=== PATIENT | female | born 1955 | race African-American/Black ===

== ENCOUNTER 2017-10-06 09:37 | Day surgery (SDC) | payer MEDICARE, OTHER ==
[~2017-10-06] VITALS: Ht 170.2 cm; Wt 68.0 kg
[2017-10-06] VITALS (7 sets, daily range): BP systolic 113–139; BP diastolic 74–91
[~2017-10-06 09:37] MED LIST: AMLODIPINE BESYL5 MG ORAL; ASPIRIN81 MG ORAL; ATORVASTATIN CA40 MG ORAL; BENAZEPRIL HCL10 MG ORAL; BISACODYL5 MG ORAL; CARVEDILOL12.5 MG ORAL; CATAPRES0.1 MG ORAL; CLARITIN10 M2 ORAL; FOLIC ACID1 MG ORAL; HYDRALAZINE HC100 MG ORAL; MULTIVITAMINS1 EAC8 ORAL; NAMENDA10 MG ORAL; OYSTER SHELL 51 EAC1 PO; PLAVIX75 MG ORAL; VITAMIN D400 INTLU ORAL; ZANTAC150 MG ORAL
[2017-10-06] MEDS ORDERED: Midazolam 2mg/2ml Inj ONE (10:26)
[2017-10-06] MEDS ORDERED: fentaNYL 100 mcg/2 mL IV ONE (10:26)
[2017-10-06] MEDS ORDERED: Lidocaine 1% MPF 10mg/ml 5ml ONE (10:27)
[2017-10-06 10:51] LABS: BASOPHILS % (AUTO) 1.2 % (0.0-2.0); EOSINOPHILS % (AUTO) 2.7 % (0.0-3.0); HEMATOCRIT 40.8 % (37.0-47.0); HEMOGLOBIN 13.7 G/DL (12.0-16.0); LYMPHOCYTES % (AUTO) 32.6 % (20.0-45.0); MEAN CORPUSCULAR VOLUME 91 FL (80-99); MONOCYTES % (AUTO) 8.5 % (1.0-10.0); NEUTROPHILS % (AUTO) 54.9 % (45.0-75.0); PLATELET COUNT 185 K/UL (150-450); RED BLOOD COUNT 4.46 M/UL (4.20-5.40); RED CELL DISTRIBUTION WIDTH 12.6 % (11.6-14.8); WHITE BLOOD COUNT 4.6 K/UL (4.8-10.8)
[2017-10-06 10:57] LABS: ANION GAP 7 mmol/L (5-15); BLOOD UREA NITROGEN 21 mg/dL (7-18); CALCIUM 9.1 MG/DL (8.5-10.1); CARBON DIOXIDE 29 MMOL/L (21-32); CHLORIDE 106 MMOL/L (98-107); CREATININE 1.4 MG/DL (0.55-1.30); POTASSIUM 3.9 MMOL/L (3.5-5.1); SODIUM 142 MMOL/L (136-145)
[2017-10-06] MEDS ORDERED: Lidocaine 2% 20mg/ml/Epi 0.005mg/ml 20ml vial ONE (11:46)
[2017-10-06] MEDS ORDERED: Clindamycin 2 ML ONE (11:46)
--- NOTE | 2017-10-06 11:48 | Pre-Procedure Note/Attestation ---
Pre-Procedure Note/Attestation Complete Prior to Procedure Planned Procedure: bilateral - nasal ob Indications for Procedure Pre-Operative Diagnosis: nasal obstruction severe septal deviation Attestation I attest that I discussed the nature of the procedure; its benefits; risks and complications; and alternatives (and the risks and benefits of such alternatives ), prior to the procedure, with the patient (or the patient's legal specialty sales representative). I attest that, if there was a reasonable possibility of needing a blood transfusion, the patient (or the patient's legal specialty sales representative) was given the [facility] standardized written summary, pursuant to the Andres David Blood Safety Act ([place] Health and Safety Code # 1645, as amended). I attest that I re-evaluated the patient just prior to the surgery and that there has been no change in the patient's H&P, except as documented below: Ochoa Villalobos MD Oct 06, 2017 11:48
--- NOTE | 2017-10-06 11:49 | Pre-Procedure Note/Attestation ---
Pre-Procedure Note/Attestation Complete Prior to Procedure Planned Procedure: bilateral Indications for Procedure Pre-Operative Diagnosis: nasal obstruction severe septal deviation Attestation I attest that I discussed the nature of the procedure; its benefits; risks and complications; and alternatives (and the risks and benefits of such alternatives ), prior to the procedure, with the patient (or the patient's legal motor vehicle field representative). I attest that, if there was a reasonable possibility of needing a blood transfusion, the patient (or the patient's legal motor vehicle field representative) was given the [facility] standardized written summary, pursuant to the Nadres David Blood Safety Act ([place] Health and Safety Code # 1645, as amended). I attest that I re-evaluated the patient just prior to the surgery and that there has been no change in the patient's H&P, except as documented below: Ochoa Villalobos MD Oct 06, 2017 11:49
[2017-10-06] MEDS ORDERED: Propofol 200mg/20ml IV ONE (12:00)
[2017-10-06] MEDS ORDERED: LR 1000ml ONE (12:00)
--- NOTE | 2017-10-06 12:32 | Anethesia Preoperative Eval ---
Anesthesia Pre-op PMH/ROS General Date of Evaluation: Oct 06, 2017 Time of Evaluation: 11:48 Anesthesiologist: Lo ASA Score: ASA 3 Mallampati Score Class I : Soft palate, uvula, fauces, pillars visible Class II: Soft palate, uvula, fauces visible Class III: Soft palate, base of uvula visible Class IV: Only hard plate visible Mallampati Classification: Class II Surgeon: Walt Diagnosis: Septal deviation Surgical Procedure: Septoplasty Anesthesia History: none Allergies: Coded Allergies: CIPROFLOXACIN (Verified Allergy, Unknown, 10/05/17) MILK CONTAINING PRODUCTS (Verified Allergy, Unknown, 10/05/17) ORANGE JUICE (Verified Allergy, Unknown, 10/05/17) PENICILLINS (Verified Allergy, Unknown, 10/05/17) PINEAPPLE (Verified Allergy, Unknown, 10/05/17) Uncoded Allergies: FLU SHOT (Allergy, Unknown, 10/05/17) SULFONAMIDES (Allergy, Unknown, 10/05/17) Medications: see eMAR Past Medical History Cardiovascular: Reports: HTN; Denies: CAD, SD, valve dz, arrhythmia, other Pulmonary: Denies: asthma, COPD, GHADA, other Gastrointestinal/Genitourinary: Reports: GERD; Denies: CRI, ESRD, other Neurologic/Psychiatric: Reports: dementia - mild; Denies: CVA, depression/anxiety, TIA, other Endocrine: Reports: DM - borderline; Denies: hypothyroidism, steroids, other HEENT: Denies: cataract (L), cataract (R), glaucoma, LAC COURTE OREILLES (L), LAC COURTE OREILLES (R), other Hematology/Immune: Denies: anemia, DVT, bleeding disorder, other Musculoskeletal/Integumentary: Denies: OA, RA, DJD, DDD, edema, other Other: other - Recent weight loss PMH Narrative: as above PSxH Narrative: see chart Anesthesia Pre-op Phys. Exam Physician Exam Last Vital Signs Date Time Temp Pulse Resp B/P (MAP) Pulse Ox O2 Delivery O2 Flow Rate FiO2 10/06/17 10:39 97.7 62 20 113/77 (89) 96 97.7 10/06/17 10:38 Room Air Constitutional: NAD Neurologic: CN 2-12 intact Cardiovascular: RRR, no M/R/G Respiratory: CTA Gastrointestinal: S/NT/ND Airway Exam Mallampati Score: Class II MO: limited Neck: stiff ROM: limited Teeth: missing Dentures: no upper, no lower Anesthesia Pre-op A/P Labs Hematology Test 10/06/17 10:25 White Blood Count 4.6 K/UL (4.8-10.8) L Red Blood Count 4.46 M/UL (4.20-5.40) Hemoglobin 13.7 G/DL (12.0-16.0) Hematocrit 40.8 % (37.0-47.0) Mean Corpuscular Volume 91 FL (80-99) Mean Corpuscular Hemoglobin 30.7 PG (27.0-31.0) Mean Corpuscular Hemoglobin Concent 33.5 G/DL (32.0-36.0) Red Cell Distribution Width 12.6 % (11.6-14.8) Platelet Count 185 K/UL (150-450) Mean Platelet Volume 6.9 FL (6.5-10.1) Neutrophils (%) (Auto) 54.9 % (45.0-75.0) Lymphocytes (%) (Auto) 32.6 % (20.0-45.0) Monocytes (%) (Auto) 8.5 % (1.0-10.0) Eosinophils (%) (Auto) 2.7 % (0.0-3.0) Basophils (%) (Auto) 1.2 % (0.0-2.0) Coagulation Test 10/06/17 10:25 Prothrombin Time 10.8 SEC (9.30-11.50) Prothromb Time International Ratio 1.0 (0.9-1.1) Activated Partial Thromboplast Time 29 SEC (23-33) Chemistry Test 10/06/17 10:25 Sodium Level 142 MMOL/L (136-145) Potassium Level 3.9 MMOL/L (3.5-5.1) Chloride Level 106 MMOL/L (98-107) Carbon Dioxide Level 29 MMOL/L (21-32) Anion Gap 7 mmol/L (5-15) Blood Urea Nitrogen 21 mg/dL (7-18) H Creatinine 1.4 MG/DL (0.55-1.30) H Estimat Glomerular Filtration Rate 46.3 mL/min (>60) Glucose Level 103 MG/DL (74-106) Calcium Level 9.1 MG/DL (8.5-10.1) Studies Pre-op Studies: EKG - SR Risk Assessment & Plan Assessment: ASA 3 Plan: GA with LMA Status Change Before Surgery: No Pre-Antibiotics Drug: Clindamycin 300mg. Given Within 1 Hr of Incision: Yes Time Given: 12:10 Kanu Blanchard MD Oct 06, 2017 12:32
[2017-10-06] MEDS ORDERED: LR 1000ml 1,000 ML IVLG SCH (12:49)
--- NOTE | 2017-10-06 12:52 | Immediate Post-Op Evaluation ---
Immediate Post-Op Evalulation Immediate Post-Op Evalulation Procedure: Turbinate ablasion Date of Evaluation: Oct 06, 2017 Time of Evaluation: 12:51 IV Fluids: 400 Blood Products: none Estimated Blood Loss: min Urinary Output: none Blood Pressure Systolic: 128 Blood Pressure Diastolic: 83 Pulse Rate: 62 Respiratory Rate: 20 O2 Sat by Pulse Oximetry: 98 Temperature (Fahrenheit): 97.6 Pain Score (1-10): 1 Nausea: No Vomiting: No Complications none Patient Status: reacts, patent, none Hydration Status: adequate Kanu Blanchard MD Oct 06, 2017 12:52
[2017-10-06] MEDS ORDERED: DiphenhydrAMINE 50mg/ml Inj IVP PRN (13:00)
[2017-10-06] MEDS ORDERED: fentaNYL 100 mcg/2 mL IV PRN (13:00)
--- NOTE | 2017-10-06 17:17 | Pre-op HX & Phy Repo 2 SIG ---
DATE OF ADMISSION: 10/06/2017 REASON FOR EVALUATION: I was asked by Dr. Villalobos to see this 62-year-old female, who is going for elective surgery on the nose. The patient has a obstruction of the airway due to septal deviation and possible polyps. The patient is going for a rhinoplasty. See full ENT history and Physical by Dr. Ochoa Villalobos. The patient was evaluated. Chart was reviewed at [place] outpatient procedure department. The patient is alert, well-developed, well-nourished female. PAST MEDICAL HISTORY: Remarkable for hypertension, history of stroke 4 years ago. Denies history of diabetes. No history of respiratory problem, asthma or bronchitis. No history of GI problem. No hepatitis. No GI bleeding. No GERD. Denies history of renal failure. No thyroid problem. No GA or arrhythmia. PAST SURGICAL HISTORY: Uterus fibroids removed years ago. FAMILY HISTORY: Mother alive with hypertension. Father from cancer of colon. ALLERGIES: Not known. PRESENT MEDICATIONS: Include baby aspirin, amlodipine 5 mg daily, atorvastatin 40 mg, benazepril 10 mg daily, Coreg 12.5 mg, calcium supplement, bisacodyl, folic acid 1 mg, hydralazine 100 mg, vitamin D, Zantac, Namenda, Claritin and also multivitamins. HABITS: Denies history of smoke or alcohol habits. No street drugs. PHYSICAL EXAMINATION: GENERAL: Alert, well-developed and well-nourished female, in her 60s. No acute distress. VITAL SIGNS: Blood pressure 113/77, temperature 97.2 degrees, pulse 57, regular and O2 saturation 97% on room air. SKIN: Dry and warm. No diaphoresis. No rashes or open wound. Lymph nodes not enlarged. HEENT: Head, normocephalic and atraumatic. Ears, clear. Eyes, pallor. Extraocular muscles intact. No jaundice or conjunctivitis. Nose, full description per Dr. Ochoa Villalobos. Mouth, clear and moist. No dentures. NECK: No jugular venous distention. Carotids artery +2. Trachea midline. CHEST: No deformity or asymmetry. LUNGS: Clear. No rales or rhonchi. HEART: Sinus rhythm. No ectopy. No murmur. No S3 or S4. ABDOMEN: Soft, benign. Liver and spleen not enlarged. EXTREMITIES: No peripheral edema. No varicose veins. No calf tenderness. NEUROLOGIC: History of CVA 4 years ago. No tremor. No nystagmus. GENITOURINARY TRACT: Denies dysuria. No CVA tenderness. LABORATORY AND DIAGNOSTIC DATA: EKG, sinus bradycardia, 58 per minute, otherwise normal ECG. The patient did not eat or drink from yesterday. Lab work pending. IMPRESSION: 1. Obstruction of airway. 2. Hypertension, controlled. 3. History of stroke 4 years ago. 4. Sinus bradycardia. EKG is normal. PLAN: Rhinoplasty per Dr. Ochoa Villalobos. CONCLUSION: The patient has history of hypertension and stroke. The patient has had normal EKG, mild bradycardia. The patient did not eat or drink from last night. The patient's condition optimized for surgery. Thank you very much, Dr. Villalobos, for privilege to participate in presurgical care of this interesting patient. Christy Banks M.D. DR: NED JOB#: [id number] CC:
[2017-10-07 08:19] VITALS: BP 133/74
--- NOTE | 2017-10-07 08:19 | 48 Hour Post Anesthesia Eval ---
Post Anesthesia Evaluation Procedure: Turbinate ablasion Date of Evaluation: Oct 06, 2017 Time of Evaluation: 14:42 Blood Pressure Systolic: 133 0: 74 Pulse Rate: 64 Respiratory Rate: 22 Temperature (Fahrenheit): 97.7 O2 Sat by Pulse Oximetry: 98 Airway: patent Nausea: No Vomiting: No Pain Intensity: 1 Hydration Status: adequate Cardiopulmonary Status: stable Mental Status/LOC: patient returned to baseline Follow-up Care/Observations: n/a Post-Anesthesia Complications: none Follow-up care needed: ready to discharge Kanu Blanchard MD Oct 07, 2017 08:19
--- NOTE | 2017-10-09 12:20 | Cardiology Report ---
APPROVED REPORT EKG Measurement Heart [id number] Sinus bradycardia Otherwise normal ECG
--- NOTE | 2017-10-11 09:45 | Operative Note - Dictated ---
DATE OF OPERATION: 10/09/2017 NOTE: POOR AUDIO PREOPERATIVE DIAGNOSIS: Septal deformity with enlarged turbinates. POSTOPERATIVE DIAGNOSES: 1. Septal deformity with enlarged turbinates. 2. Outfracture of turbinates with cautery of the turbinates and fracture of septal spur on the right and enlarged turbinates bilaterally. PROCEDURE PERFORMED: Outfracture of turbinates with cautery of the turbinates and fracture of septal spur on the right side. DESCRIPTION OF PROCEDURE: The patient understood the risks, complications, and alternative methods of treatment, and was noted to have obstruction bilaterally turbinates and to the spur. The patient also had a history of headaches on the right side. It is possible that the spur may have impinged upon the turbinates and where the sphenopalatine ganglion is and resultant headaches on that side. The patient was taken to the operating room and placed under anesthesia. The anesthesiologist given general anesthesia inhalation. The patient was injected with 1% Xylocaine and 1:200,000 with epinephrine in the turbinates and also in the septal area. I was prepared to do a septoplasty, but ____ outfracturing the turbinates turbinates, it was noted that the speculum had fractured the spur flat up against the septum. There was essentially no bleeding, which was because the patient had been on blood thinners. Dressing was placed after packing was done on inside the nose. The patient was extubated and transferred to the postop recovery facility in satisfactory condition. Ochoa Villalobos M.D. DR: MAKAYLA JOB#: [id number] CC:
== END 2017-10-06 15:00 | disposition home or self-care (01) ==
LOC: SUR 09:37
DX: J34.2 Deviated nasal septum (principal); I10 Essential (primary) hypertension; R73.03 Prediabetes; R00.1 Bradycardia, unspecified; F03.90 Unspecified dementia, unspecified severity, without behavioral disturbance, psychotic disturbance, mood disturbance, and anxiety; Z86.73 Personal history of transient ischemic attack (TIA), and cerebral infarction without residual deficits; Z88.1 Allergy status to other antibiotic agents; Z91.011 Allergy to milk products; Z88.0 Allergy status to penicillin; Z91.018 Allergy to other foods
CPT/HCPCS: 30930; 36415; 80048; 85025; 85610; 85730; 93005; J2250; J2704; J3010; J7120; S0077; 94003; 94150